=== PATIENT | female | born 1930 | race Caucasian/White ===

== ENCOUNTER → 2016-04-19 | Outpatient (CLI) | payer MEDICARE, OTHER | END | disposition home or self-care (01) | LOC: PCVCCLINIC 11:30 | PROVIDERS: ATTEND Internal Medicine Cardiovascular Disease | DX: I48.91 Unspecified atrial fibrillation (principal); I73.9 Peripheral vascular disease, unspecified | CPT/HCPCS: 85610 ==

== ENCOUNTER → 2016-04-26 | Outpatient (CLI) | payer MEDICARE, OTHER | END | disposition home or self-care (01) | LOC: PCVCCLINIC 10:30 | PROVIDERS: ATTEND Internal Medicine Cardiovascular Disease | DX: I48.91 Unspecified atrial fibrillation (principal); I50.9 Heart failure, unspecified; I34.0 Nonrheumatic mitral (valve) insufficiency; I10 Essential (primary) hypertension; I25.10 Atherosclerotic heart disease of native coronary artery without angina pectoris; E78.00 Pure hypercholesterolemia, unspecified; M81.0 Age-related osteoporosis without current pathological fracture; Z79.01 Long term (current) use of anticoagulants | CPT/HCPCS: G0463 ==

== ENCOUNTER → 2016-06-04 | Outpatient (CLI) | payer MEDICARE, OTHER | END | disposition home or self-care (01) | LOC: PCVCCLINIC 11:02 | PROVIDERS: ATTEND Internal Medicine Cardiovascular Disease | DX: I48.91 Unspecified atrial fibrillation (principal); I73.9 Peripheral vascular disease, unspecified | CPT/HCPCS: 85610; G0463 ==

== ENCOUNTER → 2016-07-16 | Outpatient (CLI) | payer MEDICARE, OTHER | END | disposition home or self-care (01) | LOC: PCVCCLINIC 12:40 | PROVIDERS: ATTEND Internal Medicine Cardiovascular Disease | DX: I48.91 Unspecified atrial fibrillation (principal); I50.9 Heart failure, unspecified; I34.0 Nonrheumatic mitral (valve) insufficiency; R91.8 Other nonspecific abnormal finding of lung field; I10 Essential (primary) hypertension; I73.9 Peripheral vascular disease, unspecified; I25.10 Atherosclerotic heart disease of native coronary artery without angina pectoris; Z87.09 Personal history of other diseases of the respiratory system | CPT/HCPCS: 80061; 93005; G0463 ==

== ENCOUNTER → 2016-08-24 | Outpatient (CLI) | payer MEDICARE, OTHER | END | disposition home or self-care (01) | LOC: PCVCIMAG 15:17 | PROVIDERS: ATTEND Internal Medicine Cardiovascular Disease | DX: I70.211 Atherosclerosis of native arteries of extremities with intermittent claudication, right leg (principal) | CPT/HCPCS: 93926 ==